=== PATIENT | male | born 1980 | race Caucasian/White ===

== ENCOUNTER 2021-07-26 20:15 | Emergency (ER) | payer OTHER ==
[2021-07-26 21:13] LABS: HEMOGLOBIN 12.3 gm/dl (14.0-17.5); RED BLOOD COUNT 3.49 M/UL (4.20-5.50); WHITE BLOOD COUNT 5.7 K/UL (4.5-11.0)
[2021-07-26 21:40] LABS: BUN/CREATININE RATIO 13 (0-10)
[2021-07-27] MEDS ORDERED: ZOFRAN ODT 4 MG4 MG GT (00:10)
[2021-07-27] MEDS ORDERED: PHENERGAN 25 MG25 M1 PO (00:10)
== END 2021-07-27 00:20 | disposition home or self-care (01) ==
LOC: ER1 20:15
PROVIDERS: Physician Assistant
DX: R11.2 Nausea with vomiting, unspecified (principal); R10.9 Unspecified abdominal pain; I50.9 Heart failure, unspecified; I11.0 Hypertensive heart disease with heart failure
CPT/HCPCS: 80053; 80307; 81001; 82150; 83690; 85025; 87086; 96374; 96375; 99284; G0480; J2060; J2405; J3480; J7030